=== PATIENT | female | born 1950 | race Caucasian/White ===

== ENCOUNTER 2017-05-24 19:58 | Emergency (ER) | payer OTHER ==
[2016-04-01 12:35] VITALS: Ht 167.6 cm; Wt 97.5 kg
[~2017-05-24] VITALS: Ht 167.6 cm; Wt 97.5 kg
[~2017-05-24 19:58] MED LIST: AZIT500T45 PO; BENZ100C26 PO; CALC1TAB PO; CARV25TA78 PO; DICL-192 PO; GUAI-206 PO; GUAI-561 PO; GUAI10LI4 PO; HYDR-3503 PO; LEVO50TA80 PO; LEVO750T27 PO; LOR5/325 PO; OMEP-137 PO; SIMV10TA98 PO; SULF-198 PO; SUMA100T32 PO; VALS1TAB10 PO; VALS40TA7 PO; VENL150C3 PO; premarin PO
[2017-05-24] MEDS ORDERED: NS(*) 0.9% 1000 ML BAG 1,000 ML IV ONE (20:04)
--- NOTE | 2017-05-24 20:04 | ER Report ---
History and Physical Time Seen By MD: 20:00 HPI/ROS CHIEF COMPLAINT: Severe epigastric and substernal chest pain HISTORY OF PRESENT ILLNESS: 66-year-old female with a history of a large hiatal hernia. She was eating quesadillas when she felt something lodge in her esophagus. She's describing acute spasm. She states she is able swallow her secretions. She does not think her esophagus is obstructed. She notes 9/10 intense pain radiating across her upper chest in a bandlike distribution. She notes she has some diaphoresis. She notes severe nausea and vomiting. REVIEW OF SYSTEMS: Respiratory: No cough, no dyspnea. Cardiovascular: As above Gastrointestinal: No vomiting, no abdominal pain. Musculoskeletal: No back pain. Allergies: Coded Allergies: No Known Drug Allergies (Unverified , 05/24/17) Home Meds Active Scripts Diclofenac Sodium (DICLOFENAC SODIUM) 50 Mg Tablet.dr, 50 MG PO BID Y for pain, #0 Prov:GALILEA CRUZ MD 04/02/16 Reported Medications [premarin] No Conflict Check, 1 TAB PO QDAY unknown dose, "its purple" 03/31/16 Venlafaxine Hcl (VENLAFAXINE HCL ER) 150 Mg Cap.er.24h, 150 MG PO QDAY 03/31/16 Carvedilol (CARVEDILOL) 25 Mg Tablet, 25 MG PO BID, #10 TAB 03/31/16 Valsartan/Hydrochlorothiazide (VALSARTAN-HCTZ 320-25 MG TAB) 1 Each Tablet, 1 EACH PO DAILY 03/31/16 Omeprazole (OMEPRAZOLE) 20 Mg Tablet.dr, 20 MG PO QDAY TAKE ONE TABLET BY MOUTH ONCE A DAY 01/30/13 Sumatriptan Succinate (IMITREX) 100 Mg Tablet, 100 MG PO ONCE Y for HEADACHE 11/17/12 Simvastatin (SIMVASTATIN) 10 Mg Tablet, 10 MG PO HS 11/17/12 Levothyroxine Sodium (SYNTHROID) 50 Mcg Tablet, 50 MCG PO QDAY TAKE ONE TABLET BY MOUTH IN THE MORNING ON AN EMPTY STOMACH AT LEAST 30 MINUTES BEFORE FOOD 11/17/12 Discontinued Reported Medications Calcium Carb &Cit/Magnesium Ox (CALMAG THINS TABLET) 1 Each Tablet, 1 EACH PO QDAY 03/31/16 Discontinued Scripts Guaifenesin/Codeine Phosphate (GUAIFENESIN-CODEINE SYRUP) 10 Ml Liquid, 5-10 ML PO Q6H Y for cough, #1 BOTTLE Prov:GALILEA CRUZ MD 04/02/16 Levofloxacin 750 Mg Tab (LEVOFLOXACIN 750 MG TAB) 750 Mg Tablet, 750 MG PO QDAY@ 10, #2 Prov:GALILEA CRUZ MD 04/02/16 Benzonatate (BENZONATATE) 100 Mg Capsule, 200 MG PO TID Y for COUGH, #15 CAPSULE Prov:GALILEA CRUZ MD 04/02/16 Reviewed Nurses Notes: Yes Old Medical Records Reviewed: Yes Hx Smoking: Yes Hx Substance Use Disorder: No Hx Alcohol Use: No Constitutional Vital Sign - Last 24 Hours 05/24/17 05/24/17 05/24/17 05/24/17 20:00 20:01 20:13 20:28 Temp 98.0 Pulse 97 86 80 Resp 20 18 15 B/P (MAP) 208/111 (143) 208/111 Pulse Ox 91 91 96 O2 Delivery Room Air 05/24/17 05/24/17 05/24/17 05/24/17 20:29 20:30 20:43 20:45 Pulse 79 Resp 18 B/P (MAP) 185/89 (121) 189/99 (129) Pulse Ox 96 O2 Flow Rate 2.0 05/24/17 05/24/17 05/24/17 05/24/17 20:58 21:00 21:15 21:20 Pulse 76 74 Resp 18 9 B/P (MAP) 176/114 (134) 153/78 (103) Pulse Ox 97 94 05/24/17 05/24/17 05/24/17 05/24/17 21:30 21:35 21:45 21:50 Pulse 78 82 Resp 17 34 B/P (MAP) 155/81 (105) 195/98 (130) Pulse Ox 95 96 05/24/17 05/24/17 05/24/17 05/24/17 22:00 22:05 22:15 22:20 Pulse 98 100 Resp 16 29 B/P (MAP) 158/82 (107) 157/84 (108) Pulse Ox 94 95 05/24/17 05/24/17 05/24/17 05/24/17 22:58 23:00 23:15 23:30 Pulse 99 95 89 Resp 12 14 B/P (MAP) 154/76 (102) 154/98 (116) 123/66 (85) Pulse Ox 97 94 91 05/24/17 23:35 Pulse 87 Resp 14 Pulse Ox 95 Physical Exam Vital signs stable, afebrile, pulse ox normal, slightly pale appearing, skin warm and dry General Appearance: The patient is alert, has no immediate need for airway protection and no current signs of toxicity. Moderate to severe distress HEENT: Pupils equal and round no injection. Oropharynx without redness or exudate, mucous. Membranes are moist Respiratory: Chest is non tender, lungs are clear to auscultation., No chest wall tenderness Cardiac: regular rate and rhythm Gastrointestinal: Abdomen is soft, moderate epigastric tenderness, no masses, bowel sounds normal. Musculoskeletal: Neck: Neck is supple and non tender. Extremities have full range of motion and are non tender. Skin: No rashes or lesions. DIFFERENTIAL DIAGNOSIS: After history and physical exam differential diagnosis was considered for chest pain including but not limited to myocardial ischemia, pericarditis pulmonary embolus, chest wall pain, pleural inflammation and pulmonary infectious causes. Additionally,abdominal pain including but not limited to appendicitis, cholecystitis, hiatal hernia, esophageal spasm, esophageal obstruction gastritis and urinary tract infection. Medical Decision Making Data Points Result Diagram: 05/24/17200405/24/172004 Laboratory Hematology Test 05/24/17 20:05 Red Blood Count 4.54 M/uL (4.17-5.56) Mean Corpuscular Volume 79.1 fL (80.0-96.0) Mean Corpuscular Hemoglobin 26.1 pg (26.0-33.0) Mean Corpuscular Hemoglobin Concent 33.0 g/dL (32.0-36.0) Red Cell Distribution Width 15.6 % (11.5-14.5) Mean Platelet Volume 7.0 fL (7.2-11.1) Neutrophils (%) (Auto) 61.7 % (39.4-72.5) Lymphocytes (%) (Auto) 25.2 % (17.6-49.6) Monocytes (%) (Auto) 9.8 % (4.1-12.4) Eosinophils (%) (Auto) 2.0 % (0.4-6.7) Basophils (%) (Auto) 1.3 % (0.3-1.4) Nucleated RBC Relative Count (auto) 0.0 /100WBC Neutrophils # (Auto) 5.5 K/uL (2.0-7.4) Lymphocytes # (Auto) 2.3 K/uL (1.3-3.6) Monocytes # (Auto) 0.9 K/uL (0.3-1.0) Eosinophils # (Auto) 0.2 K/uL (0.0-0.5) Basophils # (Auto) 0.1 K/uL (0.0-0.1) Nucleated RBC Absolute Count (auto) 0.00 K/uL Sodium Level 136 mmol/L (137-145) Potassium Level 3.9 mmol/L (3.5-5.0) Chloride Level 97 mmol/L (98-107) Carbon Dioxide Level 22 mmol/L (22-31) Blood Urea Nitrogen 28 mg/dl (7-18) Creatinine 1.20 mg/dl (0.52-1.04) Glomerular Filtration Rate Calc 44.9 Random Glucose 100 mg/dl (75-110) Calcium Level 9.7 mg/dl (8.4-10.2) Total Bilirubin 0.3 mg/dl (0.2-1.3) Aspartate Amino Transf (AST/SGOT) 23 U/L (0-35) Alanine Aminotransferase (ALT/SGPT) 33 U/L (0-56) Alkaline Phosphatase 119 U/L (0-126) Troponin I < 0.012 ng/ml B-Type Natriuretic Peptide 139 pg/ml (0-100) Total Protein 8.5 gm/dl (6.3-8.2) Albumin 4.2 g/dl (3.5-5.0) Chemistry Test 05/24/17 20:05 White Blood Count 9.0 k/uL (4.5-11.0) Red Blood Count 4.54 M/uL (4.17-5.56) Hemoglobin 11.9 g/dL (12.0-16.0) Hematocrit 35.9 % (34.0-47.0) Mean Corpuscular Volume 79.1 fL (80.0-96.0) Mean Corpuscular Hemoglobin 26.1 pg (26.0-33.0) Mean Corpuscular Hemoglobin Concent 33.0 g/dL (32.0-36.0) Red Cell Distribution Width 15.6 % (11.5-14.5) Platelet Count 541 K/uL (150-450) Mean Platelet Volume 7.0 fL (7.2-11.1) Neutrophils (%) (Auto) 61.7 % (39.4-72.5) Lymphocytes (%) (Auto) 25.2 % (17.6-49.6) Monocytes (%) (Auto) 9.8 % (4.1-12.4) Eosinophils (%) (Auto) 2.0 % (0.4-6.7) Basophils (%) (Auto) 1.3 % (0.3-1.4) Nucleated RBC Relative Count (auto) 0.0 /100WBC Neutrophils # (Auto) 5.5 K/uL (2.0-7.4) Lymphocytes # (Auto) 2.3 K/uL (1.3-3.6) Monocytes # (Auto) 0.9 K/uL (0.3-1.0) Eosinophils # (Auto) 0.2 K/uL (0.0-0.5) Basophils # (Auto) 0.1 K/uL (0.0-0.1) Nucleated RBC Absolute Count (auto) 0.00 K/uL Glomerular Filtration Rate Calc 44.9 Calcium Level 9.7 mg/dl (8.4-10.2) Total Bilirubin 0.3 mg/dl (0.2-1.3) Aspartate Amino Transf (AST/SGOT) 23 U/L (0-35) Alanine Aminotransferase (ALT/SGPT) 33 U/L (0-56) Alkaline Phosphatase 119 U/L (0-126) Troponin I < 0.012 ng/ml B-Type Natriuretic Peptide 139 pg/ml (0-100) Total Protein 8.5 gm/dl (6.3-8.2) Albumin 4.2 g/dl (3.5-5.0) EKG/Imaging EKG Interpretation 12 lead EK Rhythm: normal sinus rhythm [place]: normal QRS: normal ST segments: normal, comparison to previous EKG dated 03/31/16, no significant change Imaging X-ray: Single view portable chest x-ray was obtained. I viewed the images myself on the PACS system. My interpretation of the images is: No infiltrate, no effusion, normal mediastinum, large hiatal hernia noted., Comparison to previous chest x-ray dated 11/23/16, no significant change. The radiologist interpretation had no clinically significant variation from this interpretation. Results: CT scan of the chest, abdomen and pelvis with IV contrast was obtained. The results of the study are COMPUTED TOMOGRAPHY CHEST, ABDOMEN AND PELVIS WITH INTRAVENOUS CONTRAST DATE OF EXAM: 05/24/2017 9:04 PM. INDICATION: Severe substernal chest pain, history of large hiatal hernia. COMPARISON: Same-day radiograph, 11/23/2016 esophagram, CT chest 03/31/2016. TECHNIQUE: Contrast enhanced chest, abdomen and pelvis CT performed during the injection of 75 ml of Isovue 370. Sagittal and coronal reconstructions were performed. One of the following dose optimization techniques was utilized in the performance of this exam: Automated exposure control; adjustment of the mA and/or kV according to the patient's size; or use of an iterative reconstruction technique. Specific details can be referenced in the facility's radiology CT exam operational policy. FINDINGS: CHEST: Thyroid: Normal. Thoracic inlet: Normal. Heart and great vessels: Heart size is normal. No pericardial effusion. Pulmonary arteries and aorta are normal in caliber. Mild aortic atherosclerosis. Mediastinum and darshan: No adenopathy. At least moderate size hiatal hernia with no evidence of complete obstruction or acute inflammation. There is oral contrast in the esophagus which could indicate dysmotility or reflux. Lungs and pleura: Multiple bilateral pulmonary nodules. Examples to follow. Probable partially calcified granuloma in the right lower lobe measuring 5 mm in diameter on image 66 series 2. Noncalcified nodule along the right major fissure measuring 5 mm on image 29 series 2. Additional right upper lobe nodule on image 33 measures 7 x 7 mm. These are not significantly changed compared to 03/31/2016. Breast and axilla: No adenopathy. ABDOMEN AND PELVIS: Liver and hepatic vasculature: Liver is mildly enlarged and is hypoattenuating. No suspicious lesion. Gallbladder and bile ducts: Normal. Spleen: Normal. Pancreas: At least moderately fatty replaced. No suspicious focal lesion. Adrenals: Normal. Kidneys, ureters and bladder: Normal. Retroperitoneum and aorta: Normal caliber aorta with mild atherosclerosis. Circumaortic left renal veins. No adenopathy. GI tract, mesentery and peritoneum: At least moderate size hiatal hernia as above. There does not appear to be associated acute inflammation. Oral contrast passes through the hernia to at least the proximal two thirds of the small bowel. Contrast in the esophagus could be due to dysmotility or reflux. There is abnormal soft tissue density anterior to the rectum and appears to be confluent with 2 portions of the distal sigmoid colon. Mild adjacent inflammatory change. Underlying severe sigmoid diverticulosis. Uterus and adnexa: Hysterectomy. Bones and soft tissues: No acute abnormality or suspicious lesion. L5-S1 fusion with probable junctional disease at L4-5. Remote right rib fractures. Small fat-containing umbilical hernia. IMPRESSION: 1. At least moderate size hiatal hernia with no evidence of acute obstruction, volvulus or ischemia. 2. Retained oral contrast in the esophagus may indicate reflux or dysmotility. 3. Abnormal soft tissue density adjacent to the rectum and sigmoid colon. This could be related to prior diverticulitis in the setting of severe diverticulosis, and there may be associated rectosigmoid fistulas and/or small chronic abscess. Underlying neoplasm is not excluded. Consider nonemergent gastroenterology and/or surgical consultation, and evaluation with sigmoidoscopy /colonoscopy if indicated. 4. Hepatomegaly and probable steatosis. 5. Multiple pulmonary nodules measuring up to 7 x 7 mm, not significantly changed compared 03/31/2016. Current Fleischner Society recommendations for incidental pulmonary nodules 6-8mm (average of long and short axis):- In a patient with low risk for malignancy (i.e., minimal or absent smoking history, no known malignancy or other risk factors): Noncontrast CT at 6-12 months, then consider CT at 18-24 months. - In a patient at high risk for malignancy (e.g., smoking history and/or other known risk factors): Noncontrast CT at 6-12 months, then CT at 18-24 months. If unchanged no further follow-up necessary. Patrice H, Hector D, Goo J, et al. Guidelines for management of small pulmonary nodules detected on CT images: from the Fleischner society 2017. The study was read by the radiologist. I viewed the images myself on the PACS system. ED Course/Re-evaluation Clinical Indication for ER IV: Hydration, IV Access ED Course Patient was admitted to an examination room. H&P was done. The differential diagnoses was considered. Patient with severe epigastric and chest discomfort. She has a history of a large hiatal hernia. I'm concerned she may have a gastric volvulus. Her EKG was unchanged from previous. She was medicated for pain with fentanyl and Zofran. She continues to have significant discomfort despite all her studies being normal, including a portal chest x-ray. A CT scan with IV and oral contrast was ordered. Additional doses of fentanyl were administered. The patient could lie still on the CT scan. Drinking Gastrografin 2 cups she noted some relief in her pain. The CT scan was unremarkable. The results discussed with her. She is advised to follow-up with her specialist and her primary care doctor this next week. Decision to Disposition Date: May 24, 2017 Decision to Disposition Time: 23:40 Depart Departure Latest Vital Signs Vital Signs Date Time Temp Pulse Resp B/P (MAP) Pulse Ox O2 Delivery O2 Flow Rate FiO2 05/24/17 23:35 87 14 95 05/24/17 23:30 123/66 (85) 05/24/17 20:29 2.0 05/24/17 20:01 98.0 Room Air Impression: Primary Impression: Epigastric pain Additional Impression: Hiatal hernia Condition: Improved Disposition: HOME OR SELF-CARE Referrals: BEBETO FORTE MD (PCP) Patient Instructions: Hiatal Hernia (ED) Additional Instructions: Follow-up with your primary care and your specialist Dr Queen Problem Qualifiers CHANCE LOPEZ DO May 24, 2017 20:04
[2017-05-24] MEDS ORDERED: fentaNYL CITR 100 MCG/2 ML AMP IVP ONE ×2 (20:05→21:10)
[2017-05-24] MEDS ORDERED: ASPIRIN 81 MG CHEW PO ONE (20:05)
[2017-05-24] MEDS ORDERED: ONDANSETRON 4 MG/2 ML VIAL IVP ONE (20:05)
--- NOTE | 2017-05-24 20:17 | EKG ---
FACILITY: [facility] PATIENT NAME: MADONNA STEEL : [id number] MR: [id number] V: [id number] EXAM DATE: ORDERING PHYSICIAN: CHANCE LOPEZ TECHNOLOGIST: DULCE Dunbar Reason : CARDIAC Blood Pressure : / mmHG Vent. Rate : 084 BPM Atrial Rate : 084 BPM P-R Int : 168 ms QRS Dur : 090 ms QT Int : 358 ms P-R-T Axes : -11 063 019 degrees QTc Int : 423 ms Sinus rhythm Small Q waves inferior leads Tall T waves in precordial leads Confirmed by KRYSTYNA MATOS ([id number]) on 05/25/2017 5:15:01 AM Referred By: Confirmed By:KRYSTYNA MATOS
[2017-05-24 20:25] LABS: PLATELET COUNT, AUTOMATED 541 K/uL (150-450)
[2017-05-24] MEDS ORDERED: MAG HYD/AL HYD/SIMETH 30ML UDC PO ONE (20:35)
[2017-05-24] MEDS ORDERED: LIDOCAINE 2% VISC SLN 15ML UDC PO ONE (20:35)
--- NOTE | 2017-05-24 20:43 | RADIOLOGY IMAGING REPORT ---
[place]AC[place] [facility] [place]IENT NAME: Abhi Ball : 1950 MR: [id number] V: [id number] EXAM DATE: ORDERING PHYSICIAN: CHANCE LOPEZ TECHNOLOGIST: Location: [facility] Patient: Abhi Ball : 1950 Visit/Account:[id number] Date of Sevice: 05/24/2017 CHEST SINGLE AP Indication: Chest pain. Feels like something stuck in throat.. Comparison: 11/23/2016. Findings: Cardiomediastinal silhouette and pulmonary vessels within normal limits. There is no focal infiltrate or lobar consolidation. No pneumothorax or pleural effusion. No nodule. Moderate hiatal hernia is again present. Upper abdomen is unremarkable. No acute bony abno rmality. IMPRESSION: 1. No acute cardiopulmonary process. 2. Moderate hiatal hernia. Report Dictated By: Angel Teran at 05/24/2017 8:39 PM Report E-Signed By: Angel Teran at 05/24/2017 8:40 PM WSN:[id number]
[2017-05-24] MEDS ORDERED: GLUCAGON 1 MG KIT IV ONE (20:50)
[2017-05-24] MEDS ORDERED: DIATRIZOATE MEGL/DIATRIZOA SOD 367 MG/ML SOLN ONE (21:14)
[2017-05-24] MEDS ORDERED: IOPAMIDOL 76% 75 ML INFUS BTL 75 ML ONE (21:44)
[2017-05-24 23:30] VITALS: BP 123/66
--- NOTE | 2017-05-24 23:30 | RADIOLOGY IMAGING REPORT ---
FACILITY: [facility] PATIENT NAME: Abhi Ball : 1950 MR: [id number] V: [id number] EXAM DATE: ORDERING PHYSICIAN: CHANCE LOPEZ TECHNOLOGIST: Location: [facility] Patient: Abhi Ball : 1950 Visit/Account:[id number] Date of Sevice: 05/24/2017 COMPUTED TOMOGRAPHY CHEST, ABDOMEN AND PELVIS WITH INTRAVENOUS CONTRAST DATE OF EXAM: 05/24/2017 9:04 PM. INDICATION: Severe substernal chest pain, history of large hiatal hernia. COMPARISON: Same-day radiograph, 11/23/2016 esophagram, CT chest 03/31/2016. TECHNIQUE: Contrast enhanced chest, abdomen and pelvis CT performed during the injection of 75 ml of Isovue 370. Sagittal and coronal reconstructions were performed. One of the following dose optimiza tion techniques was utilized in the performance of this exam: Automated exposure control; adjustment of the mA and/or kV according to the patient's size; or use of an iterative reconstruction technique . Specific details can be referenced in the facility's radiology CT exam operational policy. FINDINGS: CHEST: Thyroid: Normal. Thoracic inlet: Normal. Heart and great vessels: Heart size is normal. No pericardial effusion. Pulmonary arteries and aor ta are normal in caliber. Mild aortic atherosclerosis. Mediastinum and darshan: No adenopathy. At least moderate size hiatal hernia with no evidence of compl ete obstruction or acute inflammation. There is oral contrast in the esophagus which could indicate dysmotility or reflux. Lungs and pleura: Multiple bilateral pulmonary nodules. Examples to follow. Probable partially calc ified granuloma in the right lower lobe measuring 5 mm in diameter on image 66 series 2. Noncalcifie d nodule along the right major fissure measuring 5 mm on image 29 series 2. Additional right upper l obe nodule on image 33 measures 7 x 7 mm. These are not significantly changed compared to 03/31/2016. Breast and axilla: No adenopathy. ABDOMEN AND PELVIS: Liver and hepatic vasculature: Liver is mildly enlarged and is hypoattenuating. No suspicious lesio n. Gallbladder and bile ducts: Normal. Spleen: Normal. Pancreas: At least moderately fatty replaced. No suspicious focal lesion. Adrenals: Normal. Kidneys, ureters and bladder: Normal. Retroperitoneum and aorta: Normal caliber aorta with mild atherosclerosis. Circumaortic left renal veins. No adenopathy. GI tract, mesentery and peritoneum: At least moderate size hiatal hernia as above. There does not a ppear to be associated acute inflammation. Oral contrast passes through the hernia to at least the p roximal two thirds of the small bowel. Contrast in the esophagus could be due to dysmotility or refl ux. There is abnormal soft tissue density anterior to the rectum and appears to be confluent with 2 portions of the distal sigmoid colon. Mild adjacent inflammatory change. Underlying severe sigmoid diverticulosis. Uterus and adnexa: Hysterectomy. Bones and soft tissues: No acute abnormality or suspicious lesion. L5-S1 fusion with probable junct ional disease at L4-5. Remote right rib fractures. Small fat-containing umbilical hernia. IMPRESSION: 1. At least moderate size hiatal hernia with no evidence of acute obstruction, volvulus or ischemia. 2. Retained oral contrast in the esophagus may indicate reflux or dysmotility. 3. Abnormal soft tissue density adjacent to the rectum and sigmoid colon. This could be related to prior diverticulitis in the setting of severe diverticulosis, and there may be associated rectosigmoi d fistulas and/or small chronic abscess. Underlying neoplasm is not excluded. Consider nonemergent gastroenterology and/or surgical consultation, and evaluation with sigmoidoscopy/colonoscopy if indic ated. 4. Hepatomegaly and probable steatosis. 5. Multiple pulmonary nodules measuring up to 7 x 7 mm, not significantly changed compared 03/31/2016. Current Fleischner Society recommendations for incidental pulmonary nodules 6-8mm (average of long a nd short axis):- In a patient with low risk for malignancy (i.e., minimal or absent smoking history, no known malignancy or other risk factors): Noncontrast CT at 6-12 months, then consider CT at 18-24 months. - In a patient at high risk for malignancy (e.g., smoking history and/or other known risk factors): Noncontrast CT at 6-12 months, then CT at 18-24 months. If unchanged no further follow-up necessary. Patrice H, Hector D, Jailyn J, et al. Guidelines for management of small pulmonary nodules detected on CT images: from the Fleischner society 2017. Report Dictated By: Jose Quinn MD at 05/24/2017 11:04 PM Report E-Signed By: Jose Quinn MD at 05/24/2017 11:25 PM WSN:[id number]
== END 2017-05-24 23:47 | disposition home or self-care (01) ==
LOC: ER 20:26 → CANBEDREQ 21:57 → ER 23:47
DX: K44.9 Diaphragmatic hernia without obstruction or gangrene (principal); R10.13 Epigastric pain
CPT/HCPCS: 71045; 71260; 74177; 83880; 84484; 85025; 93005; 96361; 96374; 96375; 96376; 99284; J1610; J2405; J3010; J7030; Q9967; 82040; 82247; 82310; 82374; 82435; 82565; 82947; 84075; 84132; 84155; 84295; 84450; 84460; 84520